=== PATIENT | female | born 1995 | race Caucasian/White ===

== ENCOUNTER 2024-06-04 09:00 | Outpatient (OUT) | payer OTHER, SELFPAY ==
[2024-06-04 13:20] LABS: Glucose 1 Hour 126 mg/dL (<130)
== END 2024-06-04 09:01 | disposition home or self-care (01) ==
LOC: LAB 06-06 09:01
PROVIDERS: PCP Family Medicine; Visit Provider Obstetrics & Gynecology
DX: Z36.89 Encounter for other specified antenatal screening (principal); Z3A.26 26 weeks gestation of pregnancy
CPT/HCPCS: 36415; 82950